=== PATIENT | male | born 1940 | race African-American/Black ===

== ENCOUNTER 2021-07-06 13:21 | Emergency (ER) | payer MEDICARE, MEDICAID ==
[~2021-07-06] VITALS: Ht 172.7 cm; Wt 53.0 kg
[2021-07-06] MEDS ORDERED: SODIUM CHLORIDE 0.9% 1,000 ML IV ONE (14:00)
[2021-07-06 14:23] LABS: BASOPHILS % 1.2 % (0.0-2.0); EOSINOPHILS % 4.5 % (0.0-5.0); HEMATOCRIT. 30.6 % (42.0-52.0); HEMOGLOBIN. 10.4 g/dL (14.0-18.0); LYMPHOCYTES % 29.7 % (20.0-50.0); MEAN CORPUSCULAR HEMOGLOBIN 32.1 pg (28.0-32.0); MEAN CORPUSCULAR VOLUME 94.9 fL (80.0-94.0); MONOCYTES % 11.5 % (2.0-8.0); NEUTROPHILS % 53.1 % (40.0-76.0); PLATELET 206 x1000/uL (130-400); RED BLOOD CELL COUNT 3.23 mill/uL (4.7-6.1); RED CELL DISTRIBUTION WIDTH 13.9 % (11.6-14.6)
[2021-07-06 14:29] LABS: CHLORIDE 102 mEq/L (98-107)
[2021-07-06] MEDS ORDERED: MAGNESIUM CITRATE 300ML SOLUTION PO ONE (15:00)
[2021-07-06] MEDS ORDERED: MAGNESIUM HYDROXIDE 400MG/5ML 30ML UDC PO ONE (15:00)
[2021-07-06] MEDS ORDERED: LACTULOSE 20G/30ML UDC PO ONE (15:00)
[2021-07-06 16:02] VITALS: BP 157/69
[2021-07-06] MEDS ORDERED: MAGN296S73 MT (16:03)
== END 2021-07-06 17:08 | disposition home or self-care (01) ==
LOC: ER 13:42
DX: R10.33 Periumbilical pain (principal); Z88.0 Allergy status to penicillin; Z88.2 Allergy status to sulfonamides
CPT/HCPCS: 36415; 74176; 80053; 83690; 85025; 96360; 96361; 99284; J7030

== ENCOUNTER 2021-10-10 08:41 | Inpatient (IN) | payer MEDICARE, MEDICAID ==
[~2021-10-10] VITALS: Ht 172.7 cm; Wt 65.0 kg
[~2021-10-10 08:41] MED LIST: MAGN296S73 MT
[2021-10-10] MEDS ORDERED: CLINDAMYCIN 600MG PREMIX 50 ML IV NR (09:30)
[2021-10-10] MEDS ORDERED: BACLOFEN 10MG TABLET PO NR (09:30)
[2021-10-10 11:08] LABS: HEMATOCRIT. 26.8 % (42.0-52.0); MEAN CORPUSCULAR HEMOGLOBIN 31.2 pg (28.0-32.0); MEAN CORPUSCULAR VOLUME 93.2 fL (80.0-94.0); MEAN PLATELET VOLUME 6.5 fl (7.4-10.4); PLATELET 356 x1000/uL (130-400); RED BLOOD CELL COUNT 2.87 mill/uL (4.7-6.1)
[2021-10-10 11:15] LABS: CHLORIDE 105 mEq/L (98-107)
[2021-10-10] MEDS ORDERED: MORPHINE SULFATE 2 MG/ML CPJ (NOT FOR IM USE) IV PRN (12:15)
[2021-10-10] MEDS ORDERED: ACETAMINOPHEN 325MG TABLET PO SCH (12:15)
[2021-10-10 13:14] LABS: PLATELET ESTIMATE NORMAL
[2021-10-10 16:11] LABS: CLARITY URINE CLEAR (CLEAR); COLOR URINE DARK YELLOW (YELLOW); KETONES URINE TRACE (NEGATIVE); LEUKOCYTE ESTERASE URINE TRACE (NEGATIVE); NITRITE URINE NEGATIVE (NEGATIVE); OCCULT BLOOD URINE NEGATIVE (NEGATIVE); PH URINE 7.5 (4.5-8.0); PROTEIN URINE TRACE (NEGATIVE); SPECIFIC GRAVITY URINE 1.023 (1.005-1.030)
[2021-10-10] MEDS ORDERED: SODIUM CHLORIDE 0.9% 1,000 ML IV ONE (16:15)
[2021-10-10] MEDS ORDERED: NOREPINEPHRINE 8MG/250ML PMX 250 ML IV PRN (18:15)
[2021-10-10] MEDS ORDERED: NOREPINEPHRINE 8 MG in DEXTROSE 5% WATER 250 ML IV PRN (18:15)
[2021-10-10] MEDS ORDERED: MAGNESIUM/ALUMINUM HYDROXIDE/SIMETHICONE 30ML UDC PO PRN (19:15)
[2021-10-10] MEDS ORDERED: DOCUSATE SODIUM 100MG CAPSULE PO PRN (19:15)
[2021-10-10] MEDS ORDERED: ONDANSETRON HCL 4MG/2ML INJ IV PRN (19:15)
[2021-10-10] MEDS ORDERED: CLONIDINE 0.1MG TABLET PO PRN (19:15)
[2021-10-10] MEDS: LEVOFLOXACIN 500MG PREMIX 100 ML IV SCH (20:45)
[2021-10-10] MEDS: SODIUM CHLORIDE 0.9% 1,000 ML IV SCH (20:45)
[2021-10-10] MEDS: HYDROCODONE/ACETAMINOPHEN 5/325MG TABLET PO PRN (20:45)
[2021-10-10 22:03] LABS: TOTAL IRON BINDING CAPACITY 417 ug/dL (250-450)
[2021-10-11] VITALS (12 sets, daily range): BP systolic 98–170; BP diastolic 52–96
[2021-10-11] MEDS: ACETAMINOPHEN 325MG TABLET PO PRN ×2 (01:36→08:15)
[2021-10-11] MEDS: HYDROCODONE/ACETAMINOPHEN 5/325MG TABLET PO PRN ×3 (05:01→19:53)
[2021-10-11 05:52] LABS: HEMATOCRIT. 24.7 % (42.0-52.0); HEMOGLOBIN. 8.2 g/dL (14.0-18.0); MEAN CORPUSCULAR HEMOGLOBIN 30.8 pg (28.0-32.0); MEAN PLATELET VOLUME 6.4 fl (7.4-10.4); PLATELET 327 x1000/uL (130-400); RED BLOOD CELL COUNT 2.65 mill/uL (4.7-6.1); RED CELL DISTRIBUTION WIDTH 13.8 % (11.6-14.6)
[2021-10-11 05:58] LABS: CHLORIDE 109 mEq/L (98-107)
[2021-10-11 06:05] LABS: PHOSPHORUS 2.5 mg/dL (2.5-4.9)
[2021-10-11 06:22] LABS: PLATELET ESTIMATE NORMAL
[2021-10-11] MEDS ORDERED: BACLOFEN 10MG TABLET PO PRN (08:00)
[2021-10-11] MEDS: SODIUM CHLORIDE 0.9% 1,000 ML IV SCH ×2 (08:20→21:57)
[2021-10-11] MEDS: PANTOPRAZOLE SODIUM 40 MG/VIAL IV SCH (09:00)
[2021-10-11] MEDS ORDERED: TRAM-529 MT (14:25)
[2021-10-11] MEDS ORDERED: BACL-141 MT (14:25)
[2021-10-11] MEDS: BACLOFEN 10MG TABLET PO SCH ×2 (14:45→21:18)
[2021-10-11] MEDS ORDERED: TAMS-11 MT (15:34)
[2021-10-11] MEDS: LEVOFLOXACIN 500MG PREMIX 100 ML IV SCH (20:26)
[2021-10-11] MEDS ORDERED: BACL-141 PO (21:13)
[2021-10-11] MEDS: TAMSULOSIN HCL 0.4MG SR CAPSULE PO SCH (21:56)
[2021-10-12] VITALS (8 sets, daily range): BP systolic 116–133; BP diastolic 62–75
[2021-10-12] MEDS: BACLOFEN 10MG TABLET PO SCH ×2 (02:50→09:14)
[2021-10-12] MEDS: HYDROCODONE/ACETAMINOPHEN 5/325MG TABLET PO PRN (04:49)
[2021-10-12 06:25] LABS: CHLORIDE 106 mEq/L (98-107)
[2021-10-12 06:41] LABS: HEMOGLOBIN. 8.9 g/dL (14.0-18.0); MEAN CORPUSCULAR HEMOGLOBIN 30.8 pg (28.0-32.0); MEAN CORPUSCULAR VOLUME 93.4 fL (80.0-94.0); MEAN PLATELET VOLUME 7.2 fl (7.4-10.4); PLATELET 395 x1000/uL (130-400); RED BLOOD CELL COUNT 2.89 mill/uL (4.7-6.1); RED CELL DISTRIBUTION WIDTH 13.6 % (11.6-14.6)
[2021-10-12] MEDS: PANTOPRAZOLE SODIUM 40 MG/VIAL IV SCH (09:00)
[2021-10-12] MEDS ORDERED: TAMSULOSIN HCL 0.4MG SR CAPSULE PO SCH (09:00)
[2021-10-12] MEDS: TAMSULOSIN HCL 0.4MG SR CAPSULE PO SCH (09:14)
[2021-10-12] MEDS ORDERED: CLIN300C12 MT (10:38)
[2021-10-12] MEDS: SODIUM CHLORIDE 0.9% 1,000 ML IV SCH (11:15)
[2021-10-12] MEDS: ACETAMINOPHEN 325MG TABLET PO PRN (13:48)
[2021-10-12 14:18] LABS: PLATELET ESTIMATE NORMAL
== END 2021-10-12 14:20 | disposition home or self-care (01) | DRG 871 ==
LOC: ER 08:53 → MICUSO 13:19 → EDBEDREQ 13:23 → EDBEDREQSVC 13:23 → EDBEDREQTM 13:23 → EDBEDREQSVC 16:09 → EDBEDREQTM 16:26 → 3WST 10-11 12:37
PROVIDERS: ADMIT Internal Medicine; ATTEND Internal Medicine
DX: A41.9 Sepsis, unspecified organism (principal); E43 Unspecified severe protein-calorie malnutrition; L03.116 Cellulitis of left lower limb; L03.115 Cellulitis of right lower limb; J44.9 Chronic obstructive pulmonary disease, unspecified; D72.825 Bandemia; D50.9 Iron deficiency anemia, unspecified; Z96.612 Presence of left artificial shoulder joint; Z20.822 Contact with and (suspected) exposure to COVID-19; N32.89 Other specified disorders of bladder; S81.801A Unspecified open wound, right lower leg, initial encounter; X58.XXXA Exposure to other specified factors, initial encounter; Y93.89 Activity, other specified; Z68.21 Body mass index [BMI] 21.0-21.9, adult; Y92.89 Other specified places as the place of occurrence of the external cause; Y99.8 Other external cause status
CPT/HCPCS: 36415; 71045; 76770; 80048; 80053; 80076; 81003; 83540; 83550; 83605; 83735; 83880; 84100; 84145; 84484; 85025; 86140; 87426; 93005; 93306; 93970; 99285; C9113; J1956; J3490; J7030